=== PATIENT | male | born 1985 | race Caucasian/White ===

== ENCOUNTER 2017-04-12 14:25 | Emergency (ER) | payer MEDICAID ==
[~2017-04-12] VITALS: Ht 157.5 cm; Wt 65.0 kg
[~2017-04-12 14:25] MED LIST: HYDR-569 PO
[2017-04-12] MEDS ORDERED: ketorolac trometh inj. 60 MG/2 ML VIAL IM ONE (15:20)
[2017-04-12] MEDS ORDERED: HYDROcodone/acetaminophen 10/325mg tab PO ONE (15:20)
[2017-04-12] MEDS ORDERED: HYDR-3965 PO (15:23)
[2017-04-12 15:37] VITALS: BP 136/83
== END 2017-04-12 15:38 | disposition home or self-care (01) ==
LOC: ER 14:26
DX: M54.42 Lumbago with sciatica, left side (principal); G89.29 Other chronic pain; E78.00 Pure hypercholesterolemia, unspecified; Z88.8 Allergy status to other drugs, medicaments and biological substances; Z79.899 Other long term (current) drug therapy
CPT/HCPCS: 96372; 99283; J1885

== ENCOUNTER 2018-11-21 19:17 | Emergency (ER) | payer MEDICAID ==
[~2018-11-21] VITALS: Ht 188 cm; Wt 180.0 kg
[~2018-11-21 19:17] MED LIST changes: +HYDR-4383 PO; -HYDR-569 PO
[2018-11-21 19:36] VITALS: BP 129/85
[2018-11-21] MEDS ORDERED: ketorolac tromethamine 15mg/ml inj. IM ONE (20:45)
[2018-11-21] MEDS ORDERED: CYCL10TA26 PO (20:48)
[2018-11-21] MEDS ORDERED: IBUP-1984 PO (20:48)
== END 2018-11-21 21:11 | disposition home or self-care (01) ==
LOC: MERGE 19:17 → ER 19:17
DX: M54.42 Lumbago with sciatica, left side (principal); M54.41 Lumbago with sciatica, right side; G89.29 Other chronic pain; Z79.899 Other long term (current) drug therapy
CPT/HCPCS: 96372; 99283; J1885